=== PATIENT | female | born 1965 | race African-American/Black ===

== ENCOUNTER 2017-08-06 08:58 | Emergency (ER) | payer OTHER ==
[~2017-08-06] VITALS: Ht 157.5 cm; Wt 71.0 kg
[~2017-08-06 08:58] MED LIST: ALBU18HF2 IH; DIPH25CA83 PO; LAMO25TA4 PO; LORA0.5T2 PO; OLAN2.5T3 PO; RANI150T7 PO
[2017-08-06] MEDS ORDERED: ASPI-1159 PO (09:09)
[2017-08-06] MEDS ORDERED: ONDANSETRON HCL 4MG/2ML VIAL IV STA (10:34)
[2017-08-06] MEDS ORDERED: SODIUM CHLORIDE 0.9% 1,000 ML IV ONE (10:34)
[2017-08-06] MEDS ORDERED: MORPHINE SULFATE 4 MG/ML CPJ (NOT FOR IM USE) IV STA (10:34)
[2017-08-06] MEDS ORDERED: KETOROLAC 30MG/ML VIAL IV STA (10:34)
[2017-08-06 11:05] LABS: CHLORIDE 108 mEq/L (98-107)
[2017-08-06 11:07] LABS: INR 1.1; PROTHROMBIN TIME 11.4 sec (9.4-11.6)
[2017-08-06 11:11] LABS: ETHANOL BLOOD < 10 mg/dL
[2017-08-06 11:14] LABS: BASOPHILS % 0.5 % (0.0-2.0); HEMOGLOBIN. 16.7 g/dL (12.0-16.0); LYMPHOCYTES % 22.8 % (20.0-50.0); MEAN CORPUSCULAR HEMOGLOBIN 32.3 pg (28.0-32.0); MEAN CORPUSCULAR VOLUME 94.7 fL (81.0-99.0); MEAN PLATELET VOLUME 9.7 fl (7.4-10.4); MONOCYTES % 7.7 % (2.0-8.0); PLATELET 239 x1000/uL (130-400); RED BLOOD CELL COUNT 5.17 mill/uL (4.2-5.4); RED CELL DISTRIBUTION WIDTH 13.5 % (11.6-14.6)
[2017-08-06 11:16] LABS: B-HCG QUANTITATIVE 5 mIU/mL (<3)
[2017-08-06] MEDS ORDERED: CEFTRIAXONE 1 G PREMIX 50 ML IV ONE (12:00)
[2017-08-06 12:36] LABS: CLARITY URINE CLEAR (CLEAR); COLOR URINE YELLOW (YELLOW); KETONES URINE NEGATIVE (NEGATIVE); LEUKOCYTE ESTERASE URINE NEGATIVE (NEGATIVE); NITRITE URINE NEGATIVE (NEGATIVE); OCCULT BLOOD URINE NEGATIVE (NEGATIVE); PROTEIN URINE NEGATIVE (NEGATIVE); UROBILINOGEN URINE 0.2 E.U./dL (0.2-1.0)
[2017-08-06 12:59] LABS: *BARBITURATES SCREEN URINE NEGATIVE (NEGATIVE)
[2017-08-06 13:00] LABS: *AMPHETAMINES SCREEN URINE NEGATIVE (NEGATIVE); *BENZODIAZEPINES SCREEN URINE NEGATIVE (NEGATIVE); *COCAINE SCREEN URINE NEGATIVE (NEGATIVE)
[2017-08-06 13:01] LABS: CANNABINOID URINE SCREEN PRESUMTIVE POSITIVE (NEGATIVE); METHADONE URINE SCREEN NEGATIVE (NEGATIVE); OPIATES URINE SCREEN NEGATIVE (NEGATIVE); PHENCYCLIDINE URINE SCREEN PRESUMTIVE POSITIVE (NEGATIVE)
[2017-08-06 14:15] VITALS: BP 108/73
== END 2017-08-06 15:10 | disposition home or self-care (01) ==
LOC: ER 09:48
DX: K59.00 Constipation, unspecified (principal); R10.31 Right lower quadrant pain; F16.10 Hallucinogen abuse, uncomplicated; F12.10 Cannabis abuse, uncomplicated; I10 Essential (primary) hypertension; F17.200 Nicotine dependence, unspecified, uncomplicated; Z90.710 Acquired absence of both cervix and uterus; Z91.018 Allergy to other foods; Z79.82 Long term (current) use of aspirin; Z80.52 Family history of malignant neoplasm of bladder
CPT/HCPCS: 36415; 74176; 80053; 80305; 81003; 83605; 83690; 84484; 84702; 85025; 85610; 86850; 86900; 86901; 87077; 87086; 96361; 96365; 96375; 99285; G0482; J0696; J1885; J2270; J2405; J7030; Z7610

== ENCOUNTER 2017-09-04 11:16 | Emergency (ER) | payer OTHER ==
[~2017-09-04] VITALS: Ht 157.5 cm; Wt 74.0 kg
[~2017-09-04 11:16] MED LIST changes: +ASPI-1159 PO
[2017-09-04] MEDS ORDERED: KETOROLAC 30MG/ML VIAL IM STA (12:47)
[2017-09-04] MEDS ORDERED: ACETAMINOPHEN 325MG TABLET PO ONE (13:00)
[2017-09-04 13:45] VITALS: BP 139/88
== END 2017-09-04 13:47 | disposition home or self-care (01) ==
LOC: ER 13:28
DX: M54.2 Cervicalgia (principal); M25.511 Pain in right shoulder; I10 Essential (primary) hypertension; F17.200 Nicotine dependence, unspecified, uncomplicated; F12.10 Cannabis abuse, uncomplicated; Z79.82 Long term (current) use of aspirin; V49.88XA Car occupant (driver) (passenger) injured in other specified transport accidents, initial encounter; Y93.89 Activity, other specified; Y92.410 Unspecified street and highway as the place of occurrence of the external cause; Y99.8 Other external cause status
CPT/HCPCS: 73030; 81025; 96372; 99284; J1885

== ENCOUNTER 2019-01-24 08:03 | Emergency (ER) | payer MEDICAID, OTHER ==
[~2019-01-24] VITALS: Ht 157.5 cm; Wt 61.0 kg
[~2019-01-24 08:03] MED LIST changes: -ASPI-1159 PO; +ASPI-1393 PO; -LAMO25TA4 PO; +LAMO25TA9 PO
[2019-01-24] MEDS ORDERED: ONDANSETRON HCL 4MG/2ML INJ IV STA (09:20)
[2019-01-24] MEDS ORDERED: MORPHINE SULFATE 4 MG/ML CPJ (NOT FOR IM USE) IV STA (09:20)
[2019-01-24] MEDS ORDERED: SODIUM CHLORIDE 0.9% 1,000 ML IV ONE (09:20)
[2019-01-24 09:49] LABS: CLARITY URINE TURBID (CLEAR); COLOR URINE YELLOW (YELLOW); KETONES URINE NEGATIVE (NEGATIVE); LEUKOCYTE ESTERASE URINE 3+ (NEGATIVE); NITRITE URINE POSITIVE (NEGATIVE); OCCULT BLOOD URINE 1+ (NEGATIVE); PH URINE 5.5 (4.5-8.0); PROTEIN URINE 1+ (NEGATIVE); SPECIFIC GRAVITY URINE 1.014 (1.005-1.030)
[2019-01-24 10:02] LABS: HEMATOCRIT. 40.5 % (36.0-48.0); HEMOGLOBIN. 13.7 g/dL (12.0-16.0); MEAN CORPUSCULAR HEMOGLOBIN 31.9 pg (28.0-32.0); MEAN CORPUSCULAR VOLUME 94.3 fL (81.0-99.0); MEAN PLATELET VOLUME 9.8 fl (7.4-10.4); PLATELET 255 x1000/uL (130-400); RED BLOOD CELL COUNT 4.29 mill/uL (4.2-5.4); RED CELL DISTRIBUTION WIDTH 13.6 % (11.6-14.6)
[2019-01-24 10:11] LABS: CHLORIDE 98 mEq/L (98-107)
[2019-01-24 10:16] LABS: HCG SCREEN NEGATIVE
[2019-01-24 10:28] LABS: PLATELET ESTIMATE NORMAL
[2019-01-24] MEDS ORDERED: POTASSIUM CHLORIDE 20MEQ TABLET SR PO ONE (11:00)
[2019-01-24] MEDS ORDERED: CEFTRIAXONE 1 G PREMIX 50 ML IV ONE (11:00)
[2019-01-24] MEDS ORDERED: CEFTRIAXONE 1,000 MG in DEXTROSE 5% WATER 50 ML IV SCH (12:00)
[2019-01-24 12:11] VITALS: BP 118/72
== END 2019-01-24 12:06 | disposition home or self-care (01) ==
LOC: ER 08:03
DX: N10 Acute pyelonephritis (principal); M54.5 Low back pain; I10 Essential (primary) hypertension; F12.10 Cannabis abuse, uncomplicated; F17.210 Nicotine dependence, cigarettes, uncomplicated; Z80.9 Family history of malignant neoplasm, unspecified; Z90.710 Acquired absence of both cervix and uterus; Z91.018 Allergy to other foods
CPT/HCPCS: 36415; 71045; 74176; 80053; 81003; 81025; 84703; 85025; 87077; 87086; 87186; 96361; 96374; 96375; 99284; J0696; J2270; J2405; J7030; J7060; Z7610

== ENCOUNTER 2021-01-06 14:07 | Emergency (ER) | payer MEDICAID, OTHER ==
[~2021-01-06] VITALS: Ht 157.5 cm; Wt 63.3 kg
[~2021-01-06 14:07] MED LIST changes: -ASPI-1393 PO; +ASPI-1497 PO
[2021-01-06] MEDS ORDERED: ASPIRIN 81MG TABLET PO ONE (14:45)
[2021-01-06 14:56] LABS: BASOPHILS % 0.6 % (0.0-2.0); EOSINOPHILS % 1.9 % (0.0-5.0); HEMATOCRIT. 43.1 % (36.0-48.0); HEMOGLOBIN. 14.5 g/dL (12.0-16.0); LYMPHOCYTES % 29.9 % (20.0-50.0); MEAN CORPUSCULAR HEMOGLOBIN 32.3 pg (28.0-32.0); MEAN CORPUSCULAR VOLUME 95.9 fL (81.0-99.0); MEAN PLATELET VOLUME 9.5 fl (7.4-10.4); MONOCYTES % 9.7 % (2.0-8.0); NEUTROPHILS % 57.9 % (40.0-76.0); PLATELET 224 x1000/uL (130-400); RED CELL DISTRIBUTION WIDTH 13.6 % (11.6-14.6)
[2021-01-06 15:02] LABS: CHLORIDE 112 mEq/L (98-107)
[2021-01-06 21:42] VITALS: BP 120/65
== END 2021-01-06 21:58 | disposition admitted as inpatient to this hospital (09) ==
LOC: ER 14:07
DX: R07.89 Other chest pain (principal); E78.5 Hyperlipidemia, unspecified; R94.31 Abnormal electrocardiogram [ECG] [EKG]; I10 Essential (primary) hypertension; Z20.822 Contact with and (suspected) exposure to COVID-19
CPT/HCPCS: 36415; 71045; 80053; 82962; 83880; 84484; 85025; 87426; 93005; 99291; Z7610

== ENCOUNTER 2021-01-19 11:21 | Emergency (ER) | payer OTHER ==
[~2021-01-19] VITALS: Ht 157.5 cm; Wt 68.0 kg
[2021-01-19 11:25] VITALS: BP 143/102
[2021-01-19] MEDS ORDERED: CEPH500C2 MT (11:40)
[2021-01-19] MEDS ORDERED: IBUP-2029 MT (11:40)
[2021-01-19] MEDS ORDERED: BACITRACIN ZINC OINT UDPKT TOP ONE (11:45)
== END 2021-01-19 14:06 | disposition home or self-care (01) ==
LOC: ER 11:21
DX: L98.498 Non-pressure chronic ulcer of skin of other sites with other specified severity (principal)
CPT/HCPCS: 99283; Z7610

== ENCOUNTER 2024-09-27 07:03 | Emergency (ER) | payer OTHER ==
[~2024-09-27] VITALS: Ht 167.6 cm; Wt 61.0 kg
[~2024-09-27 07:03] MED LIST changes: +CEPH500C2 MT; +IBUP-2029 MT; +LAMO-21 PO; -LAMO25TA9 PO
[2024-09-27 07:10] VITALS: O2SAT 98
[2024-09-27 08:45] LABS: BASOPHILS % 1.1 % (0.0-2.0); EOSINOPHILS % 1.4 % (0.0-5.0); HEMATOCRIT. 39.6 % (36.0-48.0); HEMOGLOBIN. 13.3 g/dL (12.0-16.0); LYMPHOCYTES % 30.4 % (20.0-50.0); MEAN CORPUSCULAR HEMOGLOBIN 31.8 pg (28.0-32.0); MEAN CORPUSCULAR HGB CONC 33.7 g/dL (31.0-37.0); MEAN CORPUSCULAR VOLUME 94.4 fL (81.0-99.0); MEAN PLATELET VOLUME 9.1 fl (7.4-10.4); MONOCYTES % 7.6 % (2.0-8.0); NEUTROPHILS % 59.5 % (40.0-76.0); PLATELET 205 x1000/uL (130-400); RED BLOOD CELL COUNT 4.19 mill/uL (4.2-5.4); RED CELL DISTRIBUTION WIDTH 13.4 % (11.6-14.6); WHITE BLOOD COUNT 5.6 x1000/uL (4.5-11.0)
[2024-09-27 08:52] LABS: CHLORIDE 110 mEq/L (98-107); POTASSIUM 3.6 mEq/L (3.5-5.1); SODIUM 145 mEq/L (136-145)
[2024-09-27 08:53] LABS: CALCIUM 9.7 mg/dL (8.7-10.4); CARBON DIOXIDE 28 mEq/L (21-32)
[2024-09-27 08:58] LABS: ETHANOL BLOOD < 10 mg/dL (<10); GLUCOSE 119 mg/dL (70-105); UREA NITROGEN BLOOD 13 mg/dL (9-23)
[2024-09-27 09:00] LABS: ACETAMINOPHEN < 2 ug/mL (10-30)
[2024-09-27 13:09] LABS: *AMPHETAMINES SCREEN URINE NEGATIVE (NEGATIVE); *BARBITURATES SCREEN URINE NEGATIVE (NEGATIVE); *BENZODIAZEPINES SCREEN URINE NEGATIVE (NEGATIVE)
[2024-09-27 13:10] LABS: *COCAINE SCREEN URINE PRESUMPTIVE POSITIVE (NEGATIVE); CANNABINOID URINE SCREEN NEGATIVE (NEGATIVE); ECSTASY MDMA SCREEN URINE NEGATIVE (NEGATIVE); METHADONE URINE SCREEN NEGATIVE (NEGATIVE); OPIATES URINE SCREEN NEGATIVE (NEGATIVE); PHENCYCLIDINE URINE SCREEN PRESUMTIVE POSITIVE (NEGATIVE)
[2024-09-27 16:02] VITALS: BP 153/97; PULSE 85; RESP 18; TEMP 36.9; O2SAT 98
== END 2024-09-27 16:08 ==
LOC: ER 07:06
DX: R45.851 Suicidal ideations (principal); R45.850 Homicidal ideations; R44.3 Hallucinations, unspecified; I10 Essential (primary) hypertension; Z90.710 Acquired absence of both cervix and uterus; Z91.148 Patient's other noncompliance with medication regimen for other reason; Z79.899 Other long term (current) drug therapy; Z20.822 Contact with and (suspected) exposure to COVID-19
CPT/HCPCS: 36415; 80048; 80305; 80307; 80320; 80329; 85025; 87426; 99291; G0480